=== PATIENT | male | born 1990 ===

== ENCOUNTER 2020-04-28 15:17 | Emergency (ER) | payer SELFPAY ==
[2020-04-28 15:25] VITALS: BP 119/76; PULSE 71; RESP 18; TEMP 36.7; O2SAT 95; BMI 35.9
--- NOTE | 2020-04-28 15:40 | W.ED.SKABFB ---
HPI - Skin/Abscess/Foreign Bdy General: Chief complaint: Skin/Abscess/Foreign Body Stated complaint: metal in eye Time Seen by Provider: 04/28/20 15:36 Source: patient Mode of arrival: ambulatory Limitations: no limitations History of Present Illness: HPI narrative: 30-year-old male who was grinding metal yesterday without eye protection and states that he believes he had a piece of metal in his right eye. He states he has swelling along with pain to that eye. He states his pain is sharp in nature and worse with bright lights. States it is improved with darkness. Denies any change in his vision. States his pain is currently a 4 out of 10. Associated symptoms: Deny chills, fever(s), nausea or vomiting Review of Systems Const: Denies: fever(s), chills, body aches or change in appetite Eyes: Reports: eye discomfort ENMT: Denies: throat pain or dental pain Card: Denies: chest pain Resp: Denies: dyspnea GI: Denies: abdominal pain, nausea, vomiting or diarrhea : Denies: dysuria Musc: Denies: neck pain or back pain Skin/Breast: Denies: rash Neuro: Denies: headache(s) Psych: Denies: depression Hank/Lymph: Denies: easy bruising All/Imm: Denies: urticaria Physical Exam Const: COMMON NORMALS: no acute distress, patient oriented x3 and healthy appearing HENMT: COMMON NORMALS: normocephalic and atraumatic HEAD & SCALP: normocephalic and atraumatic Eye: COMMON NORMALS: Equal, round and reactive pupils present and EOMs intact bilaterally PUPIL: Yes Equal, round and reactive pupils present OTHER: Small piece of metal with a slight rust ring the right eye Neck/C-Spine: COMMON NORMALS: full ROM and supple Chest: COMMONS NORMALS: normal inspection of the chest and normal palpation of entire chest wall Resp: COMMON NORMALS: normal respiratory effort, No retractions, No use of accessory muscles and clear to auscultation bilaterally AUSCULTATION: clear to auscultation bilaterally Cardio: COMMON NORMALS: regular rate, regular rhythm and No murmurs present (Cardio) RATE: regular rate RHYTHM: regular rhythm GI: COMMON NORMALS: Normal to inspection, nondistended, normoactive bowel sounds present, Soft to palpation, non-tender and no masses PALPATION: Yes Soft to palpation Extremity: COMMON NORMALS: normal to inspection and full ROM Neuro: COMMON NORMALS: patient oriented x3, moves all extremities and no focal motor deficits Psych: COMMON NORMALS: mental status grossly normal, Normal thought process present and cooperative THOUGHT PROCESS: Normal thought process present Skin: COMMON NORMALS: no rashes or lesions noted and no wounds GENERAL SKIN EXAM: no rashes or lesions noted Course Vital Signs: Vital signs: Vital Signs Temperature 98.0 F 04/28/20 15:25 Pulse Rate 76 04/28/20 15:51 Respiratory Rate 16 04/28/20 15:51 Blood Pressure 135/80 04/28/20 15:51 Pulse Oximetry 98 04/28/20 15:51 MDM - Skin/Abscess/Foreign Bdy MDM Narrative: Medical decision making narrative: Patient presents with a piece of metal to his right eye. I was able to remove it most of the rust ring with an ophthalmic bur. Will place patient on erythromycin and have him follow-up with Dr. Flores. Patient is return if worsening. He understands agrees to plan. Discharge Plan Discharge Patient Disposition: Home Clinical Impression: Foreign body in cornea, right eye, initial encounter Condition: Stable Prescriptions: New erythromycin 5 mg/gram (0.5 %) ointment 1 applic ophthalmic (eye) Q8H Qty: 3.5 RF: 0 Referrals: Nigel Flores MD [Physician] - 1-3 days Discharge Diet: Advance as tolerated Discharge Activity: Resume usual activity Patient Instructions: Eye Foreign Body (ED) Coding Level of Care Code ED [employer] [facility] for [facility] Fwd Exam Comprehensive
[2020-04-28 15:51] VITALS: BP 135/80; PULSE 76; RESP 16; O2SAT 98
[2020-04-28] MEDS: tetracaine 0.5% Op Soln 4 mL Btl 1 DROP EYE-RIGHT (15:54)
[2020-04-28] MEDS: fluorescein 1 mg Strip EYE-RIGHT (15:54)
[2020-04-28] MEDS: tetanus-dipt-pertussis 0.5 mL SDV IM (16:09)
[2020-04-28 16:32] VITALS: BP 135/80; PULSE 76; RESP 16; O2SAT 98
--- NOTE | 2020-04-30 10:10 | DCPLANNER ---
scientific research manager had message to schedule a follow up appointment for patient with Dr. Flores. scientific research manager called patient to confirm that patient wanted the referral. scientific research manager called [phone], unable to speak with patient at this time, no answer, and was unable to leave a message for patient to return case worker phone call.
== END 2020-04-28 16:32 | disposition home or self-care (01) ==
PROVIDERS: Emergency Provider Emergency Medicine
DX: T15.01XA Foreign body in cornea, right eye, initial encounter (principal); X58.XXXA Exposure to other specified factors, initial encounter; Z23 Encounter for immunization
CPT/HCPCS: 12345; 90471; 90715; 99281; 99283